=== PATIENT | male | born 1970 | race Caucasian/White ===

== ENCOUNTER → 2021-04-26 | Outpatient (CLI) | payer OTHER ==
[~2021-04-26] MED LIST: IBUPROFEN600 MG PO; TAMIFLU 75 MG C75 MG PO; ZOFRAN4 MG PO
== END ==
LOC: MRI 09:16
DX: M54.59 Other low back pain (principal); M48.061 Spinal stenosis, lumbar region without neurogenic claudication
CPT/HCPCS: 72148

== ENCOUNTER → 2021-05-26 | Outpatient (CLI) | payer OTHER ==
[~2021-05-26] MED LIST changes: +VITAMIN D PO; +VITAMIN D350 MC3 PO
== END ==
LOC: CT 14:54
DX: M48.061 Spinal stenosis, lumbar region without neurogenic claudication (principal); M43.16 Spondylolisthesis, lumbar region; M43.17 Spondylolisthesis, lumbosacral region
CPT/HCPCS: 72131

== ENCOUNTER 2021-05-27 05:31 | Inpatient (IN) | payer OTHER ==
[~2021-05-27] VITALS: Ht 180.3 cm; Wt 97.7 kg
[~2021-05-27 05:31] MED LIST changes: -VITAMIN D350 MC3 PO
[2021-05-27 19:57] LABS: RED BLOOD COUNT 4.1 M/UL (4.20-5.50); WHITE BLOOD COUNT 18.2 K/UL (4.5-11.0)
[2021-05-27 20:00] LABS: HEMOGLOBIN 12.1 gm/dl (14.0-17.5)
[2021-05-27 20:11] LABS: BUN/CREATININE RATIO 13 (0-10)
[2021-05-28 04:47] LABS: HEMOGLOBIN 13.2 gm/dl (14.0-17.5); WHITE BLOOD COUNT 17.5 K/UL (4.5-11.0)
[2021-05-28 04:51] LABS: RED BLOOD COUNT 4.52 M/UL (4.20-5.50)
[2021-05-28 05:02] LABS: BUN/CREATININE RATIO 17 (0-10)
[2021-05-28] MEDS ORDERED: VITAMIN D350 MC3 PO (08:53)
[2021-05-29 04:38] LABS: WHITE BLOOD COUNT 15.7 K/UL (4.5-11.0)
[2021-05-29 04:39] LABS: HEMOGLOBIN 11.2 gm/dl (14.0-17.5); RED BLOOD COUNT 3.77 M/UL (4.20-5.50)
[2021-05-29 05:20] LABS: BUN/CREATININE RATIO 16 (0-10)
[2021-05-30 06:24] LABS: HEMOGLOBIN 10.5 gm/dl (14.0-17.5); RED BLOOD COUNT 3.59 M/UL (4.20-5.50); WHITE BLOOD COUNT 15.1 K/UL (4.5-11.0)
[2021-05-30 06:51] LABS: BUN/CREATININE RATIO 13 (0-10)
[2021-05-31 04:06] LABS: HEMOGLOBIN 9.9 gm/dl (14.0-17.5); RED BLOOD COUNT 3.43 M/UL (4.20-5.50); WHITE BLOOD COUNT 12.2 K/UL (4.5-11.0)
[2021-05-31 04:25] LABS: BUN/CREATININE RATIO 11 (0-10)
[2021-06-01 05:07] LABS: RED BLOOD COUNT 3.39 M/UL (4.20-5.50); WHITE BLOOD COUNT 11.1 K/UL (4.5-11.0)
[2021-06-01 05:23] LABS: BUN/CREATININE RATIO 11 (0-10)
[2021-06-01] MEDS ORDERED: LEVOFLOXACIN500 MG PO (07:59)
== END 2021-06-01 08:43 | disposition home or self-care (01) | DRG 453 ==
LOC: OR 05:31 → CCU 20:16 → OR 20:17 → CCU 06-01 08:43
PROVIDERS: ADMIT Orthopaedic Surgery
PROC: 0SG10AJ Fusion of 2 or more Lumbar Vertebral Joints with Interbody Fusion Device, Posterior Approach, Anterior Column, Open Approach (ICD-10-PCS; 2021-05-27)
PROC: 0SG3071 Fusion of Lumbosacral Joint with Autologous Tissue Substitute, Posterior Approach, Posterior Column, Open Approach (ICD-10-PCS; 2021-05-27)
PROC: 00QT0ZZ Repair Spinal Meninges, Open Approach (ICD-10-PCS; 2021-05-27)
PROC: 01NB0ZZ Release Lumbar Nerve, Open Approach (ICD-10-PCS; 2021-05-27)
PROC: 01NR0ZZ Release Sacral Nerve, Open Approach (ICD-10-PCS; 2021-05-27)
PROC: 4A11X4G Monitoring of Peripheral Nervous Electrical Activity, Intraoperative, External Approach (ICD-10-PCS; 2021-05-27)
PROC: 0SG30AJ Fusion of Lumbosacral Joint with Interbody Fusion Device, Posterior Approach, Anterior Column, Open Approach (ICD-10-PCS; principal; 2021-05-27 08:30)
PROC: 0SG1071 Fusion of 2 or more Lumbar Vertebral Joints with Autologous Tissue Substitute, Posterior Approach, Posterior Column, Open Approach (ICD-10-PCS; 2021-05-27 08:30)
DX: M48.061 Spinal stenosis, lumbar region without neurogenic claudication (principal); J18.9 Pneumonia, unspecified organism; M96.820 Accidental puncture and laceration of a musculoskeletal structure during a musculoskeletal system procedure; Z20.822 Contact with and (suspected) exposure to COVID-19; M47.896 Other spondylosis, lumbar region; M21.371 Foot drop, right foot; G47.33 Obstructive sleep apnea (adult) (pediatric); Y83.8 Other surgical procedures as the cause of abnormal reaction of the patient, or of later complication, without mention of misadventure at the time of the procedure; G89.29 Other chronic pain; E55.9 Vitamin D deficiency, unspecified; F41.9 Anxiety disorder, unspecified; M54.9 Dorsalgia, unspecified; M54.16 Radiculopathy, lumbar region; Z87.891 Personal history of nicotine dependence; Z98.890 Other specified postprocedural states; Z83.3 Family history of diabetes mellitus
CPT/HCPCS: 36415; 71045; 72100; 72110; 76000; 80048; 82962; 83735; 85027; 86850; 86900; 86901; 87040; 87070; 87081; 87086; 87205; 94660; 94760; 97116; 97116-GP-CQ; 97161; C1713; C1762; C1781; J0690; J0696; J1100; J1170; J1200; J1644; J1885; J2250; J2405; J2704; J3010; J3370; J3475; J7030; J7040; J7070; J7120

== ENCOUNTER 2021-06-04 21:25 | Emergency (ER) | payer OTHER ==
[~2021-06-04 21:25] MED LIST changes: +LEVOFLOXACIN500 MG PO; +VITAMIN D350 MC3 PO
[2021-06-04 22:20] LABS: HEMOGLOBIN 10.1 gm/dl (14.0-17.5); RED BLOOD COUNT 3.43 M/UL (4.20-5.50); WHITE BLOOD COUNT 11.6 K/UL (4.5-11.0)
[2021-06-04 22:35] LABS: BUN/CREATININE RATIO 9 (0-10)
[2021-06-05] MEDS ORDERED: ZOFRAN 4 MG TAB4 MG PO (15:31)
[2021-06-05] MEDS ORDERED: PERCOCET 5-3251 EACH PO (15:31)
== END 2021-06-05 02:55 | disposition home or self-care (01) ==
LOC: ER1 21:25
PROVIDERS: Physician Assistant
DX: R07.9 Chest pain, unspecified (principal); R10.817 Generalized abdominal tenderness; Z98.890 Other specified postprocedural states
CPT/HCPCS: 71045; 80053; 82550; 82553; 84484; 85025; 93005; 99285; Q9967

== ENCOUNTER 2021-06-05 13:06 | Emergency (ER) | payer OTHER ==
[2021-06-05 14:40] LABS: HEMOGLOBIN 10.2 gm/dl (14.0-17.5); RED BLOOD COUNT 3.52 M/UL (4.20-5.50); WHITE BLOOD COUNT 11.9 K/UL (4.5-11.0)
[2021-06-05 14:56] LABS: BUN/CREATININE RATIO 9 (0-10)
[2021-06-05] MEDS ORDERED: ZOFRAN 4 MG TAB4 MG PO (15:31)
[2021-06-05] MEDS ORDERED: PERCOCET 5-3251 EACH PO (15:31)
== END 2021-06-05 15:38 | disposition home or self-care (01) ==
LOC: ER1 13:06
PROVIDERS: Emergency Medicine
DX: R22.2 Localized swelling, mass and lump, trunk (principal)
CPT/HCPCS: 71045; 80053; 82550; 82553; 84484; 85025; 93005; 96374; 99285; J1885